=== PATIENT | female | born 1950 | race Caucasian/White ===

== ENCOUNTER → 2016-10-13 | Outpatient (CLI) | payer OTHER ==
[~2016-10-13] MED LIST: FSM70 PO; LEVO-217 PO
--- NOTE | 2016-10-13 14:52 | MAMMOGRAPHY REPORT ---
BILATERAL DIGITAL SCREENING MAMMOGRAM WITH CAD: 10/13/2016 CLINICAL HISTORY: Routine screening. Patient has no complaints. TECHNIQUE: Bilateral CC and MLO views were obtained. Current study was also evaluated with a Comput er Aided Detection (CAD) system. COMPARISON: Comparison is made to exams dated: 10/13/2015 mammogram, 10/09/2014 mammogram, 10/08/2013 mammogram, 10/02/2012 mammogram, 09/27/2011 mammogram, and 09/21/2010 mammogram - [facility]. BREAST COMPOSITION: The tissue of both breasts is almost entirely fatty. FINDINGS: There is evidence of prior bilateral breast surgery. Scattered benign-appearing calcifica tions. A stable oval 4.7 mm circumscribed mass in the lateral right breast. No new suspicious mass , architectural distortion or cluster of microcalcifications is seen. IMPRESSION: ACR BI-RADS CATEGORY 1: NEGATIVE There is no mammographic evidence of malignancy. A 1 year screening mammogram is recommended. The p atient will receive written notification of the results. Approximately 10% of breast cancers are not detected with mammography. A negative mammographic repor t should not delay biopsy if a clinically suggestive mass is present. Gia Da Silva M.D. ay/:10/13/2016 10:53:50 Support Services Coordinator: Manjula KRUSE(R)(M), [facility] letter sent: Normal 1/2 BI-RADS Code: ACR BI-RADS Category 1: Negative
== END | disposition home or self-care (01) ==
LOC: C.MAMM 10:14
PROVIDERS: ATTEND Internal Medicine
DX: Z12.31 Encounter for screening mammogram for malignant neoplasm of breast (principal)

== ENCOUNTER 2017-09-08 14:28 | Inpatient (IN) | payer OTHER ==
[~2017-09-08] VITALS: Ht 160 cm; Wt 67.8 kg
[2017-09-08] MEDS ORDERED: SODIUM CHLORIDE 0.9% 1000ML 1,000 ML IV STA (14:41)
[2017-09-08] MEDS ORDERED: KETOROLAC TROMETHAMINE 30 MG/ML VIAL IV STA (14:41)
--- NOTE | 2017-09-08 14:49 | EMERGENCY ROOM VISIT NOTE ---
History Report prepared by Chelo: Elo Valdes Under the Supervision of: Dr. Ghulam Childers M.D. First contact with patient: 14:30 Stated Complaint: NEAR SYNCOPE/ ARM AND SHOULDER PAIN History of Present Illness The patient is a 66 year old female who presents to the Emergency Room with complaints of persistent left shoulder pain due to a fall that occurred about an hour ago. The patient rates her pain a 9/10 in severity. The patient states she went [facility] to get her finger nail looked at. She notes when she got up from the table she lost her balance and landed on her left shoulder. She states she felt clammy after she got up. The patient notes she did not go unconscious when she fell. She notes [facility] administered 4 Aspirin. She reports she felt fine before and was not experiencing any lightheaded or dizziness. She was hypotensive at [facility]. She states she has pain in her left shoulder. The patient denies chest pain, shortness of breath, abdominal pain, or black or bloody stool. She denies any new medications or a history of heart problems. Source of History: patient Onset: about an hour ago Position: shoulder (left) Symptom Intensity: 9/10 Timing: other (persistent) Associated Symptoms: No chest pain, No SOB, No abdominal pain Note: Denies black or bloody stool, dizziness, or lightheaded. Review of Systems See HPI for pertinent positives & negatives. A total of 10 systems reviewed and were otherwise negative. Past Medical & Surgical Medical Problems: (1) Hypothyroidism (2) Osteoporosis Surgical Problems: (1) Eyelid surgery (2) History of cataract surgery (3) Hx of appendectomy (4) Status post breast reduction Appendectomy, breast reduction. Family History FHx: cancer Hypertension Social History Smoking Status: Former Smoker Occupation Status: employed Current/Historical Medications Scheduled Levothyroxine Sodium (Levothyroxine Sodium), 1 TAB PO DAILY Multivitamin (Multivitamin), 1 TAB PO DAILY Allergies Coded Allergies: No Known Allergies (Unverified , NONE, 09/08/17) Physical Exam Vital Signs Date Time Temp Pulse Resp B/P (MAP) Pulse Ox O2 Delivery O2 Flow Rate FiO2 09/08/17 19:03 37.3 63 18 124/73 (90) 100 Room Air 09/08/17 18:38 36.9 68 22 127/72 97 09/08/17 18:06 68 22 127/72 97 Room Air 09/08/17 18:06 97 Room Air 09/08/17 17:38 72 09/08/17 16:12 76 09/08/17 14:42 36.9 53 18 151/71 98 Room Air Physical Exam General: Non-ill appearing middle aged female in no acute distress. HEENT: Normal cephalic atraumatic. Pupils are equal round and reactive to light. Extraocular movements are intact. Oropharynx is pink with moist mucous membranes. No swelling of the mouth lips or tongue. Neck: Supple with a midline trachea. No meningeal signs or stiffness, no JVD or bruits. No Stridor. Chest: Clear to auscultation bilaterally. No wheezes or rhonchi. No increased work of breathing. Heart: regular rate and rhythm. Abdomen: Soft nontender, nondistended without rebound guarding or rigidity. Extremities: Holding left upper extremity flexed at elbow, close to chest, tender to palpation in mid to proximal humorous with no evidence of dislocation or obvious deformity, normal motor and sensation in left hand. Spine/Back. Non tender to palpation. No CVA tenderness Skin: Good turgor without rashes. Neurologic exam: Cranial nerves two through 12 are intact. Motor and sensation are intact and symmetrical throughout. Medical Decision & Procedures ER Provider Diagnostic Interpretation: Radiology results as stated below per my review and radiologist interpretation: L HUMERUS MIN 2 VIEWS ROUTINE CLINICAL HISTORY: Left arm pain. Evaluate for fracture. COMPARISON: None FINDINGS: Note is made of a lucency through the inferior aspect of the greater tuberosity of the left humeral head. This may reflect an acute nondisplaced fracture. No additional left humeral fractures are identified. IMPRESSION: Suspected acute nondisplaced left humeral head fracture involving the inferior aspect of the greater tuberosity. A vascular channel could appear similar although nondisplaced fracture is favored. Electronically signed by: Adrian Muir M.D. 09/08/2017 3:09 PM Dictated Date/Time: 09/08/2017 3:06 PM CHEST ONE VIEW PORTABLE CLINICAL HISTORY: CHEST PAIN COMPARISON STUDY: Chest radiograph July 06, 2008. FINDINGS: There is no pneumothorax or pleural effusion. Lungs are clear. Cardiomediastinal silhouette is unremarkable. Pulmonary vascularity is normal. There is a possible acute nondisplaced fracture of the lateral aspect of the left humeral head. IMPRESSION: 1. No acute cardiopulmonary findings. 2. Possible acute nondisplaced left humeral head fracture involving the inferior aspect of the greater tuberosity. Electronically signed by: Adrian Muir M.D. 09/08/2017 3:10 PM Dictated Date/Time: 09/08/2017 3:09 PM Laboratory Results 09/08/17 15:16 Red Blood Count 4.21, Mean Corpuscular Volume 85.5, Mean Corpuscular Hemoglobin 29.2, Mean Corpuscular Hemoglobin Concent 34.2, Mean Platelet Volume 10.3, Neutrophils (%) (Auto) 76.7, Lymphocytes (%) (Auto) 17.5, Monocytes (%) (Auto) 5.0, Eosinophils (%) (Auto) 0.6, Basophils (%) (Auto) 0.1, Neutrophils # (Auto) 5.51, Lymphocytes # (Auto) 1.26, Monocytes # (Auto) 0.36, Eosinophils # (Auto) 0.04, Basophils # (Auto) 0.01 09/08/17 15:16 Test 09/08/17 15:16 09/08/17 16:06 White Blood Count 7.19 K/uL (4.8-10.8) Red Blood Count 4.21 M/uL (4.2-5.4) Hemoglobin 12.3 g/dL (12.0-16.0) Hematocrit 36.0 % (37-47) Mean Corpuscular Volume 85.5 fL (80-100) Mean Corpuscular Hemoglobin 29.2 pg (25-34) Mean Corpuscular Hemoglobin Concent 34.2 g/dl (32-36) Platelet Count 244 K/uL (130-400) Mean Platelet Volume 10.3 fL (7.4-10.4) Neutrophils (%) (Auto) 76.7 % Lymphocytes (%) (Auto) 17.5 % Monocytes (%) (Auto) 5.0 % Eosinophils (%) (Auto) 0.6 % Basophils (%) (Auto) 0.1 % Neutrophils # (Auto) 5.51 K/uL (1.4-6.5) Lymphocytes # (Auto) 1.26 K/uL (1.2-3.4) Monocytes # (Auto) 0.36 K/uL (0.11-0.59) Eosinophils # (Auto) 0.04 K/uL (0-0.5) Basophils # (Auto) 0.01 K/uL (0-0.2) RDW Standard Deviation 40.1 fL (36.4-46.3) RDW Coefficient of Variation 12.9 % (11.5-14.5) Immature Granulocyte % (Auto) 0.1 % Immature Granulocyte # (Auto) 0.01 K/uL (0.00-0.02) Anion Gap 6.0 mmol/L (3-11) Est Creatinine Clear Calc Drug Dose 49.8 ml/min Estimated GFR () 67.9 Estimated GFR (Non- 58.6 BUN/Creatinine Ratio 26.2 (10-20) Calcium Level 8.7 mg/dl (8.5-10.1) Total Bilirubin 0.4 mg/dl (0.2-1) Direct Bilirubin < 0.1 mg/dl (0-0.2) Aspartate Amino Transf (AST/SGOT) 24 U/L (15-37) Alanine Aminotransferase (ALT/SGPT) 28 U/L (12-78) Alkaline Phosphatase 50 U/L (45-117) Total Creatine Kinase 153 U/L (26-192) Creatine Kinase MB 2.3 ng/ml (0.5-3.6) Creatine Kinase MB Ratio 1.5 (0-3.0) Total Protein 7.2 gm/dl (6.4-8.2) Albumin 3.9 gm/dl (3.4-5.0) Lipase 165 U/L (73-393) Thyroid Stimulating Hormone (TSH) 2.340 uIu/ml (0.300-4.500) Prothrombin Time 10.5 SECONDS (9.0-12.0) Prothromb Time International Ratio 1.0 (0.9-1.1) Activated Partial Thromboplast Time 21.7 SECONDS (21.0-31.0) Partial Thromboplastin Ratio 0.8 Laboratory studies as stated above per my review. Medications Administered Medications (Trade) Dose Ordered Sig/Luis Route Start Time Stop Time Status Last Admin Dose Admin Sodium Chloride 1,000 ml @ 999 mls/hr Q1H1M STAT IV 09/08/17 14:41 09/08/17 15:41 DC 09/08/17 15:46 999 MLS/HR Ketorolac Tromethamine (Toradol Inj) 30 mg NOW STAT IV 09/08/17 14:41 09/08/17 14:45 DC 09/08/17 15:47 30 MG Acetaminophen/ Hydrocodone Bitart ([place] 7.5/325 Tab) 1 tab Q6H PRN PO 09/08/17 17:45 09/22/17 17:44 09/08/17 18:04 1 TAB ECG Per My Interpretation Indication: syncope (near syncope) Rate (beats per minute): 60 Rhythm: normal sinus Findings: no acute ischemic change, other (non specific T wave abnormality) Comparison ECG Date: compared to EKG at [facility] earlier today Change: Non specific T wave replaces T wave inversion anteriorly. ED Course 1430: Past medical records reviewed. The patient was evaluated in room C8, and a complete history and physical examination were performed. 1441: Toradol Inj 30 mg IV, Sodium Chloride 1000 ml @ 999 mls/hr IV. 1455: Patient appears comfortable, she is getting X-rays now. 1530: Patient is resting comfortably, ordered a sling. The patient has a humorous fracture. 1648: I reevaluated the patient and she is resting comfortably. 1700: I spoke with Angi Paredes and she is agreeable to the treatment plan. She will evaluate the patient for further treatment. Medical Decision Differentials include, but are not limited to; syncope, arrhythmia, acute coronary syndrome, dehydration, orthopedic injury, electrolyte or metabolic abnormalities. This patient comes in as described above. She was placed in room C8. She had a near syncopal episode where she fell and hit her left shoulder at her doctor' s office. She denies any chest pain but there was concern as she has T-wave inversions mostly anteriorly which are new. She has had no chest pain or shortness breath. she has pain from her shoulder. I have asked established blood work was obtained. She was given Toradol IV for pain and seems more comfortable with this. Her x-ray does reveal a nondisplaced humerus fracture. A sling was placed. EKG here shows nonspecific T-wave abnormalities. She has no acute electrolyte or metabolic abnormality. She has nothing to suggest acute thyroid disease. There is no pneumothorax. I do think she should be observed given her T-wave inversions in her near syncopal episode. I have consulted the [facility] hospitalist to see her in the ER for these measures. Medication Reconcilliation Current Medication List: was personally reviewed by me Blood Pressure Screening Patient's blood pressure: Elevated blood pressure Blood pressure disposition: Elevated BP felt to be situational Consults Time Called: 1644 Consulting Physician: Angi Paredes Returned Call: 1700 I spoke with Angi Paredes and she is agreeable to the treatment plan. She will evaluate the patient for further treatment. Impression Primary Impression: Syncope Additional Impression: Shoulder fracture Scribe Attestation The scribe's documentation has been prepared under my direction and personally reviewed by me in its entirety. I confirm that the note above accurately reflects all work, treatment, procedures, and medical decision making performed by me. Departure Information Dispostion Being Evaluated By Hospitalist Referrals Michael Mason D.O. (PCP) Problem Qualifiers
--- NOTE | 2017-09-08 15:10 | DIAGNOSTIC IMAGING REPORT ---
L HUMERUS MIN 2 VIEWS ROUTINE CLINICAL HISTORY: Left arm pain. Evaluate for fracture. COMPARISON: None FINDINGS: Note is made of a lucency through the inferior aspect of the greater tuberosity of the left humeral head. This may reflect an acute nondisplaced fracture. No additional left humeral fractures are identified. IMPRESSION: Suspected acute nondisplaced left humeral head fracture involving the inferior aspect of the greater tuberosity. A vascular channel could appear similar although nondisplaced fracture is favored. Electronically signed by: Adrian Muir M.D. 09/08/2017 3:09 PM Dictated Date/Time: 09/08/2017 3:06 PM
--- NOTE | 2017-09-08 15:12 | DIAGNOSTIC IMAGING REPORT ---
CHEST ONE VIEW PORTABLE CLINICAL HISTORY: CHEST PAIN COMPARISON STUDY: Chest radiograph July 06, 2008. FINDINGS: There is no pneumothorax or pleural effusion. Lungs are clear. Cardiomediastinal silhouette is unremarkable. Pulmonary vascularity is normal. There is a possible acute nondisplaced fracture of the lateral aspect of the left humeral head. IMPRESSION: 1. No acute cardiopulmonary findings. 2. Possible acute nondisplaced left humeral head fracture involving the inferior aspect of the greater tuberosity. Electronically signed by: Adrian Muir M.D. 09/08/2017 3:10 PM Dictated Date/Time: 09/08/2017 3:09 PM
[2017-09-08 15:34] LABS: BASO % 0.1 %; BASO ABS # 0.01 K/uL (0-0.2); EOS % 0.6 %; EOS ABS # 0.04 K/uL (0-0.5); HEMOGLOBIN 12.3 g/dL (12.0-16.0); IG# 0.01 K/uL (0.00-0.02); LYMPH % 17.5 %; LYMPH ABS # 1.26 K/uL (1.2-3.4); MEAN CELL VOLUME 85.5 fL (80-100); MEAN CORPUSCULAR HEMOGLOBIN 29.2 pg (25-34); MEAN CORPUSCULAR HGB CONC 34.2 g/dl (32-36); MEAN PLATELET VOLUME 10.3 fL (7.4-10.4); MONO ABS # 0.36 K/uL (0.11-0.59); NEUT % 76.7 %; NEUT ABS # 5.51 K/uL (1.4-6.5); PLATELET COUNT 244 K/uL (130-400); RED CELL DISTRIBUTION WIDTH CV 12.9 % (11.5-14.5); RED CELL DISTRIBUTION WIDTH SD 40.1 fL (36.4-46.3); WHITE BLOOD COUNT 7.19 K/uL (4.8-10.8)
[2017-09-08 16:00] LABS: ALBUMIN 3.9 gm/dl (3.4-5.0); ALT/SGPT 28 U/L (12-78); BLOOD UREA NITROGEN 26 mg/dl (7-18); CALCIUM 8.7 mg/dl (8.5-10.1); CARBON DIOXIDE 27 mmol/L (21-32); CREATININE 0.99 mg/dl (0.60-1.20); GLUCOSE 112 mg/dl (70-99); LIPASE 165 U/L (73-393); POTASSIUM 3.5 mmol/L (3.5-5.1); SODIUM 138 mmol/L (136-145)
[2017-09-08 16:11] LABS: ALKALINE PHOSPHATASE 50 U/L (45-117); AST/SGOT 24 U/L (15-37); CKMB 2.3 ng/ml (0.5-3.6); TOTAL PROTEIN 7.2 gm/dl (6.4-8.2)
[2017-09-08 16:32] LABS: PTT PATIENT 21.7 SECONDS (21.0-31.0)
[2017-09-08] MEDS ORDERED: MULT-506 PO (17:03)
[2017-09-08] MEDS ORDERED: LEVO50TA6 PO (17:03)
[2017-09-08] MEDS ORDERED: ONDANSETRON INJ 2 MG/ML 2 ML VIAL IV PRN (17:45)
[2017-09-08] MEDS: HYDROCODONE/ACETAMINOPHEN 7.5/325MG TAB PO PRN ×2 (18:04→23:42)
[2017-09-08 18:06] VITALS: O2SAT 97; Ht 160 cm; Wt 67.8 kg
--- NOTE | 2017-09-08 18:15 | History and Physical ---
History & Physical Date & Time of Service: Sep 08, 2017 ~ 17:15 Chief Complaint: Fall, left shoulder pain Primary Care Physician: Michael Mason D.O. History of Present Illness 58-year-old female who presents to the ER after a fall and left shoulder pain. Patient was at the outpatient dermatology office when she reports she went to adjust her chair and subsequently fell to the left and onto the ground. She reports immediate left shoulder pain. She reports pain was severe. She reports she was unable to get off the floor from the pain. Patient was found to be diaphoretic. She was transferred to the internal medicine office where she was found to be bradycardic and hypotensive. Patient denies any feelings of lightheadedness or dizziness. She denies loss of consciousness. No chest pain, palpitations, shortness of breath. Patient reports she otherwise has been feeling well recently. She walks up to 2 miles per day. No recent illnesses, fevers, or chills. She denies abdominal pain, nausea, vomiting, or diarrhea. No urinary symptoms. In the ED, patient was found to have a nondisplaced left humerus fracture. Labs are unremarkable. Blood pressure is stable. EKG shows sinus arrhythmia with mildly worsened T-wave flattening/inversions in leads aVF , V2, V3, V4, and V5. During my exam, patient was noted to have heart rates in the 90s with sinus arrhythmia. Past Medical/Surgical History Medical Problems: (1) Hypothyroidism Status: Chronic (2) Osteoporosis Status: Chronic Surgical Problems: (1) Eyelid surgery Status: Chronic (2) History of cataract surgery Status: Chronic (3) Hx of appendectomy Status: Chronic (4) Status post breast reduction Status: Chronic Family History FH: breast cancer MOTHER FH: liver cancer FATHER Social History Smoking Status: Former Smoker Alcohol Use: 1 glass of red wine/night Immunizations History of Influenza Vaccine: Yes Influenza Vaccine Date: Feb 16, 2017 History of Tetanus Vaccine?: Yes Tetanus Immunization Date: Feb 16, 1970 History of Pneumococcal: Yes Pneumococcal Date: Jul 17, 2010 Allergies Coded Allergies: No Known Allergies (Unverified , NONE, 09/08/17) Home Medications Scheduled Levothyroxine Sodium (Levothyroxine Sodium), 1 TAB PO DAILY Multivitamin (Multivitamin), 1 TAB PO DAILY Review of Systems ROS per HPI, all other systems reviewed and negative Physical Exam Vital Signs Date Time Temp Pulse Resp B/P (MAP) Pulse Ox O2 Delivery O2 Flow Rate FiO2 09/08/17 17:38 72 09/08/17 16:12 76 09/08/17 14:42 36.9 53 18 151/71 98 Room Air General Appearance: WD/WN, no apparent distress Head: normocephalic, atraumatic Eyes: normal inspection, EOMI, sclerae normal ENT: hearing grossly normal, + pertinent finding (Mucous membranes moist) Neck: supple, no JVD, trachea midline Respiratory/Chest: lungs clear, normal breath sounds, no respiratory distress Cardiovascular: no edema, no murmur, normal peripheral pulses, + irregularly irregular (Heart rate controlled) Abdomen/GI: normal bowel sounds, non tender, soft, no organomegaly Extremities/Musculoskelatal: + pertinent finding (Left upper extremity in sling , CSM checks intact) Neurologic/Psych: no motor/sensory deficits, alert, normal mood/affect, oriented x 3 Skin: normal color, warm/dry Diagnostics Laboratory Results Results Past 24 Hours Test 09/08/17 15:16 09/08/17 16:06 Range/Units White Blood Count 7.19 4.8-10.8 K/uL Red Blood Count 4.21 4.2-5.4 M/uL Hemoglobin 12.3 12.0-16.0 g/dL Hematocrit 36.0 37-47 % Mean Corpuscular Volume 85.5 80-100 fL Mean Corpuscular Hemoglobin 29.2 25-34 pg Mean Corpuscular Hemoglobin Concent 34.2 32-36 g/dl Platelet Count 244 130-400 K/uL Mean Platelet Volume 10.3 7.4-10.4 fL Neutrophils (%) (Auto) 76.7 % Lymphocytes (%) (Auto) 17.5 % Monocytes (%) (Auto) 5.0 % Eosinophils (%) (Auto) 0.6 % Basophils (%) (Auto) 0.1 % Neutrophils # (Auto) 5.51 1.4-6.5 K/uL Lymphocytes # (Auto) 1.26 1.2-3.4 K/uL Monocytes # (Auto) 0.36 0.11-0.59 K/uL Eosinophils # (Auto) 0.04 0-0.5 K/uL Basophils # (Auto) 0.01 0-0.2 K/uL RDW Standard Deviation 40.1 36.4-46.3 fL RDW Coefficient of Variation 12.9 11.5-14.5 % Immature Granulocyte % (Auto) 0.1 % Immature Granulocyte # (Auto) 0.01 0.00-0.02 K/uL Sodium Level 138 136-145 mmol/L Potassium Level 3.5 3.5-5.1 mmol/L Chloride Level 105 98-107 mmol/L Carbon Dioxide Level 27 21-32 mmol/L Anion Gap 6.0 3-11 mmol/L Blood Urea Nitrogen 26 7-18 mg/dl Creatinine 0.99 0.60-1.20 mg/dl Est Creatinine Clear Calc Drug Dose 49.8 ml/min Estimated GFR () 67.9 Estimated GFR (Non- 58.6 BUN/Creatinine Ratio 26.2 10-20 Random Glucose 112 70-99 mg/dl Calcium Level 8.7 8.5-10.1 mg/dl Total Bilirubin 0.4 0.2-1 mg/dl Direct Bilirubin < 0.1 0-0.2 mg/dl Aspartate Amino Transf (AST/SGOT) 24 15-37 U/L Alanine Aminotransferase (ALT/SGPT) 28 12-78 U/L Alkaline Phosphatase 50 45-117 U/L Total Creatine Kinase 153 26-192 U/L Creatine Kinase MB 2.3 0.5-3.6 ng/ml Creatine Kinase MB Ratio 1.5 0-3.0 Total Protein 7.2 6.4-8.2 gm/dl Albumin 3.9 3.4-5.0 gm/dl Lipase 165 73-393 U/L Thyroid Stimulating Hormone (TSH) 2.340 0.300-4.500 uIu/ml Prothrombin Time 10.5 9.0-12.0 SECONDS Prothromb Time International Ratio 1.0 0.9-1.1 Activated Partial Thromboplast Time 21.7 21.0-31.0 SECONDS Partial Thromboplastin Ratio 0.8 Diagnostic Radiology LEFT HUMERUS X-RAY IMPRESSION: Suspected acute nondisplaced left humeral head fracture involving the inferior aspect of the greater tuberosity. A vascular channel could appear similar although nondisplaced fracture is favored. CXR IMPRESSION: 1. No acute cardiopulmonary findings. 2. Possible acute nondisplaced left humeral head fracture involving the inferior aspect of the greater tuberosity. Impression Assessment and Plan FALL, BRADYCARDIA -Admit to telemetry -Patient presenting from outpatient office where she suffered from what sounds like a mechanical fall however upon evaluation was found to be bradycardic and hypotensive -No associated cardiac or presyncopal symptoms reported -EKG in the ED shows minimal T-wave changes as described in HPI -On telemetry patient appears to be in sinus arrhythmia with heart rates ranging from the 50s-90s -Question possible tachybradycardia syndrome -continue to cycle cardiac enzymes, check resting echocardiogram -Orthostatic blood pressures -Continue to monitor in telemetry, may need cardiology consult LEFT HUMERUS FRACTURE -Nondisplaced, likely nonsurgical -Consult orthopedics HYPOTHYROIDISM -TSH 2.34 -Continue levothyroxine DVT PROPHYLAXIS -SQ Lovenox DISPOSITION -The patient will be placed as observation status for now until further work up is complete. Attending addendum: The patient was seen in the ER in presence of the daughter Admitted with mechanical fall and left shoulder fracture Was noted to have bradycardia with heart rate of lower 40s and blood pressure of 80s in the clinic Denies any symptoms in the emergency room Noted to have very insignificant EKG changes. On examination No apparent distress Hemodynamically stable with heart rate around 60s Chest-clear Heart S1-S2 regular Abdomen-benign Extremities-no edema The left upper extremity is in sling [employer]-alert awake, and oriented No focal neuro deficit Admission labs and imaging studies and EKG reviewed Doubt any ACS,May have Bradyarrhythmia Agree with assessment and plan as mentioned above. Dr. Nan Gray Resuscitation Status VTE Prophylaxis Will order VTE Prophylaxis: Yes
[2017-09-08] MEDS ORDERED: IV FLUIDS COMPLETED PRN (19:00)
[2017-09-08 19:03] VITALS: BP 124/73; PULSE 63; TEMP 37.3; O2SAT 100
[2017-09-08] MEDS: ACETAMINOPHEN 325 MG TAB PO PRN (19:37)
[2017-09-08 19:42] VITALS: BP_SYST 134; BP_SYST 140; BP_DIAS 75; BP_DIAS 77; BP_DIAS 78; PULSE 63; PULSE 75; PULSE 82
[2017-09-08] MEDS: ENOXAPARIN 40 MG/0.4 ML SYR SC SCH (20:00)
[2017-09-08] MEDS ORDERED: MoRPHine SULFATE 2 MG/ML CARP IV ONE (21:45)
[2017-09-08] MEDS ORDERED: NURSING VERBAL MED ORDER ONE (21:45)
[2017-09-09] VITALS (7 sets, daily range): BP systolic 111–165; BP diastolic 55–90; PULSE 56–91; TEMP 36.6–37.2; O2SAT 95–100
[2017-09-09 03:28] LABS: HEMATOCRIT 32.3 % (37-47); HEMOGLOBIN 11.2 g/dL (12.0-16.0); MEAN CELL VOLUME 84.6 fL (80-100); MEAN CORPUSCULAR HEMOGLOBIN 29.3 pg (25-34); MEAN CORPUSCULAR HGB CONC 34.7 g/dl (32-36); MEAN PLATELET VOLUME 9.7 fL (7.4-10.4); PLATELET COUNT 213 K/uL (130-400); RED CELL DISTRIBUTION WIDTH CV 13.1 % (11.5-14.5); WHITE BLOOD COUNT 7.62 K/uL (4.8-10.8)
[2017-09-09] MEDS ORDERED: KETOROLAC TROMETHAMINE 15 MG/ML VIAL IV ONE (03:45)
[2017-09-09 03:50] LABS: BLOOD UREA NITROGEN 23 mg/dl (7-18); CALCIUM 8.3 mg/dl (8.5-10.1); CARBON DIOXIDE 26 mmol/L (21-32); CREATININE 0.74 mg/dl (0.60-1.20); GLUCOSE 125 mg/dl (70-99); POTASSIUM 3.6 mmol/L (3.5-5.1); SODIUM 134 mmol/L (136-145)
[2017-09-09] MEDS: LEVOTHYROXINE 50 MCG TAB PO SCH (05:55)
[2017-09-09] MEDS: HYDROCODONE/ACETAMINOPHEN 7.5/325MG TAB PO PRN (05:55)
[2017-09-09] MEDS ORDERED: PERFLUTREN LIPID MICROSPHERE (DEFINITY) IV ONE (07:03)
[2017-09-09] MEDS: MULTIVITAMIN TAB PO SCH (08:06)
[2017-09-09] MEDS: ACETAMINOPHEN 325 MG TAB PO PRN (08:09)
--- NOTE | 2017-09-09 10:46 | ECHOCARDIOGRAM REPORT ---
*NOTICE TO RECEIVING [employer] [employer] This information is strictly Confidential and protected under [place] law. [place] law prohibits you from making any further disclosure of this information unless further disclosure is expressly permitted by the written consent of the person to whom it pertains or is authorized by law. A general authorization for the release of medical or other information is not sufficient for this purpose. Hospital accepts no responsibility if the information is made available to any other person, INCLUDING THE PATIENT. Interpretation Summary * Name: HUMBERTO MESSINA Study Date: 09/09/2017 06:30 AM BP: 155/79 mmHg * Patient Location: C.2T\S\S244\S\1 HR: 53 * : 1950 (M/d/yyyy) Gender: Female Height: 63 in * Age: 66 yrs Ethnicity: CA Weight: 146 lb * Ordering Physician: Sepideh Willard * Referring Physician: Lidia Steele * Performed By: Zoila Vásquez RDCS * * Reason For Study: BRADYCARDIA * BSA: 1.7 m2 * Left Shoulder/Arm in Sling... Patient flat on back * -- Conclusions -- * Left ventricular systolic function is normal. * Ejection Fraction = 60-65%. * The right ventricular systolic function is normal. * The left atrial size is normal. * Right atrial size is normal. * The aortic valve is trileaflet. * Moderate aortic regurgitation. * There is mild to moderate mitral regurgitation. Procedure Details * A contrast injection of Definity was performed to improve assessment of LV function. * Contrast was injected into an intravenous site in the right arm. * One vial of Definity ultrasound contrast was diluted in normal saline to a total volume of 10 ml. A total of '1' ml of solution was administered during imaging. * Lot # [id number] of Definity utilized for procedure. * Expiration date SEP 15. * The attending nurse who injected the contrast agent was SHAYNA BARNETT. Left Ventricle * The left ventricle is normal in size. * There is normal left ventricular wall thickness. * Ejection Fraction = 60-65%. * Left ventricular systolic function is normal. Right Ventricle * The right ventricle is normal size. * The right ventricular systolic function is normal. Atria * The left atrial size is normal. * Right atrial size is normal. * No ASD detected; PFO is not assessed. Mitral Valve * The mitral valve anatomy is normal. * There is mild to moderate mitral regurgitation. Tricuspid Valve * The tricuspid valve is not well visualized, but is grossly normal. * Significant tricuspid regurgitation is absent. Aortic Valve * The aortic valve opens well. * The aortic valve is trileaflet. * Moderate aortic regurgitation. Pulmonic Valve * The pulmonic valve is not well visualized. Great Vessels * The aortic root and proximal ascending aorta are normal sized. Pericardium/Pleural * There is no pericardial effusion. MMode 2D Measurements and Calculations IVSd 0.96 cm IVSs 1.3 cm LVIDd 4.7 cm LVIDs 3.1 cm LVPWd 1.1 cm LVPWs 1.5 cm IVS/LVPW 0.88 FS 34.0 % EDV(Teich) 103.7 ml ESV(Teich) 38.5 ml EF(Teich) 62.9 % EDV(cubed) 105.6 ml ESV(cubed) 30.3 ml EF(cubed) 71.3 % % IVS thick 34.7 % % LVPW thick 36.2 % LV mass(C)d 171.8 grams LV mass(C)dI 101.6 grams/m\S\2 LV mass(C)s 146.1 grams LV mass(C)sI 86.3 grams/m\S\2 SV(Teich) 65.2 ml SI(Teich) 38.6 ml/m\S\2 SV(cubed) 75.3 ml SI(cubed) 44.5 ml/m\S\2 Ao root diam 3.2 cm Ao root area 7.8 cm\S\2 LA dimension 3.3 cm LA/Ao 1.1 LVAd ap4 29.7 cm\S\2 LVLd ap4 8.0 cm EDV(MOD-sp4) 88.9 ml EDV(sp4-el) 93.4 ml LVAs ap4 15.8 cm\S\2 LVLs ap4 6.0 cm ESV(MOD-sp4) 35.4 ml ESV(sp4-el) 35.8 ml EF(MOD-sp4) 60.1 % EF(sp4-el) 61.7 % LVAd ap2 27.4 cm\S\2 LVLd ap2 7.6 cm EDV(MOD-sp2) 76.5 ml EDV(sp2-el) 83.7 ml LVAs ap2 14.2 cm\S\2 LVLs ap2 5.4 cm ESV(MOD-sp2) 31.2 ml ESV(sp2-el) 31.8 ml EF(MOD-sp2) 59.2 % EF(sp2-el) 62.0 % LVLd %diff -5.43 % EDV(MOD-bp) 82.8 ml LVLs %diff -9.83 % ESV(MOD-bp) 34.1 ml EF(MOD-bp) 58.8 % SV(MOD-sp4) 53.5 ml SI(MOD-sp4) 31.6 ml/m\S\2 SV(MOD-sp2) 45.3 ml SI(MOD-sp2) 26.7 ml/m\S\2 SV(MOD-bp) 48.7 ml SI(MOD-bp) 28.8 ml/m\S\2 SV(sp4-el) 57.6 ml SI(sp4-el) 34.1 ml/m\S\2 SV(sp2-el) 51.9 ml SI(sp2-el) 30.7 ml/m\S\2 Doppler Measurements and Calculations MV E max amena 69.6 cm/sec MV A max amena 44.3 cm/sec MV E/A 1.6 MV dec time 0.28 sec Ao V2 max 115.8 cm/sec Ao max PG 5.4 mmHg Ao max PG (full) 2.5 mmHg AI max amena 253.9 cm/sec AI max PG 25.8 mmHg AI dec slope 156.2 cm/sec\S\2 AI P1/2t 476.1 msec LV V1 max PG 2.9 mmHg LV V1 max 84.9 cm/sec TR max amena 213.4 cm/sec
[2017-09-09] MEDS ORDERED: TRAMADOL HCL 50 MG TAB PO ONE (10:50)
[2017-09-09] MEDS ORDERED: OXYCODONE HCL IR 5 MG TAB (IMMEDIATE RELEASE) PO PRN (11:00)
[2017-09-09] MEDS ORDERED: TRAMADOL HCL 50 MG TAB PO PRN (11:00)
--- NOTE | 2017-09-09 12:34 | DIAGNOSTIC IMAGING REPORT ---
SCAPULAR Y VIEW OF THE LEFT SHOULDER CLINICAL HISTORY: Left shoulder pain. Possible posterior dislocation. COMPARISON: Left humerus radiographs performed September 08, 2017. FINDINGS: A lucency projecting over the left humeral neck could reflect a nondisplaced fracture. The humeral head is posteriorly located with respect to the glenoid. IMPRESSION: 1. Posterior positioning of the left humeral head with respect to the glenoid which could reflect a posterior left shoulder dislocation or subluxation. 2. Lucency projecting over the left humeral neck suggestive of an acute nondisplaced fracture. Electronically signed by: Adrian Muir M.D. 09/09/2017 12:33 PM Dictated Date/Time: 09/09/2017 12:28 PM
[2017-09-09] MEDS: ACETAMINOPHEN 500 MG TAB PO SCH ×2 (14:12→22:00)
--- NOTE | 2017-09-09 15:50 | Medical Consult ---
Consultation Date of Consultation: Sep 09, 2017. Attending Physician: Xavier Sharp M.D. Reason for Consultation: Left shoulder pain History of Present Illness Patient is a 66 year old female that presented yesterday to the ER. She fell while at an office visit onto her left shoulder. She had immediate pain. She was also having some hypotension and bradycardia at the time. She denied nausea , vomiting, chest pain, or shortness of breath. Past Medical/Surgical History Medical Problems: (1) Shoulder fracture Status: Acute (2) Syncope Status: Acute Family History FH: breast cancer MOTHER FH: liver cancer FATHER Social History Smoking Status: Former Smoker Alcohol Use: 1 glass of red wine/night Allergies Coded Allergies: No Known Allergies (Unverified , NONE, 09/08/17) Current Inpatient Medications Current Inpatient Medications Medications (Trade) Dose Ordered Sig/Ulis Route Start Time Stop Time Status Last Admin Dose Admin Enoxaparin Sodium (Lovenox Inj) 40 mg Q24H SC 09/08/17 20:00 10/08/17 19:59 Acetaminophen (Tylenol Tab) 650 mg Q4H PRN PO 09/08/17 17:45 10/08/17 17:44 Future Hold 09/09/17 08:09 650 MG Ondansetron HCl (Zofran Inj) 4 mg Q6H PRN IV 09/08/17 17:45 10/08/17 17:44 Levothyroxine Sodium (Synthroid Tab) 50 mcg DAILYBB PO 09/09/17 06:00 10/09/17 06:59 09/09/17 05:55 50 MCG Multivitamins (Multivitamin Tab) 1 tab DAILY PO 09/09/17 09:00 10/09/17 08:59 09/09/17 08:06 1 TAB Miscellaneous (Iv Fluids Completed) 1 ea PRN PRN N/A 09/08/17 19:00 09/08/18 18:59 Acetaminophen (Tylenol Tab) 1,000 mg Q8 PO 09/09/17 14:00 10/09/17 13:59 09/09/17 14:12 1,000 MG Tramadol HCl (Ultram Tab) 50 mg Q6H PRN PO 09/09/17 11:00 10/09/17 10:59 Oxycodone HCl (Roxicodone Immediate Rel Tab) 5 mg Q6H PRN PO 09/09/17 11:00 09/23/17 10:59 09/09/17 13:19 5 MG Review of Systems Constitutional: No fever, No chills, No sweats, No weight loss, No weakness, No fatigue Eyes: No worsening of vision, No redness ENT: No hearing loss, No tinnitus Respiratory: No cough, No wheezing, No shortness of breath Cardiovascular: No chest pain, No edema Abdomen: No pain, No nausea, No vomiting, No diarrhea, No constipation Musculoskeletal: + joint pain (left shoulder - unable to move the shoulder without pain), + swelling (left shoulder) Neurologic: No memory loss, No numbness/tingling, No vertigo Psychiatric: No depression symptoms, No anxiety Integumentary: No rash, No itch Physical Exam Date Time Temp Pulse Resp B/P (MAP) Pulse Ox O2 Delivery O2 Flow Rate FiO2 09/09/17 12:00 Room Air 09/09/17 11:21 37.1 57 18 138/55 (82) 100 09/09/17 08:00 Room Air 09/09/17 07:28 37.1 56 18 156/81 (106) 95 Room Air 148/79 (102) 155/79 (104) 09/09/17 04:00 Room Air 09/09/17 03:12 37.2 58 20 111/69 (83) 96 Room Air 09/09/17 00:12 37.0 65 18 133/74 (93) 95 Room Air 09/08/17 23:59 Room Air 09/08/17 20:00 Room Air 09/08/17 19:42 75 140/78 (98) 63 134/75 (94) 82 134/77 (96) 09/08/17 19:03 37.3 63 18 124/73 (90) 100 Room Air 09/08/17 18:38 36.9 68 22 127/72 97 09/08/17 18:06 68 22 127/72 97 Room Air 09/08/17 18:06 97 Room Air 09/08/17 17:38 72 09/08/17 16:12 76 General Appearance: WD/WN, no apparent distress Head: normocephalic, atraumatic Eyes: normal inspection, PERRL, EOMI, sclerae normal ENT: hearing grossly normal, pharynx normal Neck: supple, no adenopathy, no JVD, trachea midline Respiratory/Chest: lungs clear, normal breath sounds Cardiovascular: regular rate, rhythm, no murmur Abdomen/GI: normal bowel sounds, non tender, soft Extremities/Musculoskelatal: no calf tenderness, normal capillary refill, + pertinent finding (decreased ROM and tenderness over the lateral acromion. Patient was in a sling and unable to move her arm due to pain. capillary refill was normal. Neurovascularly intact distally. ) Neurologic/Psych: no motor/sensory deficits, alert, normal reflexes, oriented x 3 Skin: normal color, warm/dry, no rash Laboratory Results Last 24 Hours Test 09/08/17 16:06 09/08/17 20:51 09/09/17 03:20 Prothrombin Time 10.5 SECONDS Prothromb Time International Ratio 1.0 Activated Partial Thromboplast Time 21.7 SECONDS Partial Thromboplastin Ratio 0.8 Troponin I < 0.015 ng/ml < 0.015 ng/ml White Blood Count 7.62 K/uL Red Blood Count 3.82 M/uL Hemoglobin 11.2 g/dL Hematocrit 32.3 % Mean Corpuscular Volume 84.6 fL Mean Corpuscular Hemoglobin 29.3 pg Mean Corpuscular Hemoglobin Concent 34.7 g/dl RDW Standard Deviation 40.0 fL RDW Coefficient of Variation 13.1 % Platelet Count 213 K/uL Mean Platelet Volume 9.7 fL Sodium Level 134 mmol/L Potassium Level 3.6 mmol/L Chloride Level 105 mmol/L Carbon Dioxide Level 26 mmol/L Anion Gap 3.0 mmol/L Blood Urea Nitrogen 23 mg/dl Creatinine 0.74 mg/dl Est Creatinine Clear Calc Drug Dose 66.6 ml/min Estimated GFR () 96.5 Estimated GFR (Non- 83.2 BUN/Creatinine Ratio 31.4 Random Glucose 125 mg/dl Calcium Level 8.3 mg/dl SCAPULAR Y VIEW OF THE LEFT SHOULDER CLINICAL HISTORY: Left shoulder pain. Possible posterior dislocation. COMPARISON: Left humerus radiographs performed September 08, 2017. FINDINGS: A lucency projecting over the left humeral neck could reflect a nondisplaced fracture. The humeral head is posteriorly located with respect to the glenoid. IMPRESSION: 1. Posterior positioning of the left humeral head with respect to the glenoid which could reflect a posterior left shoulder dislocation or subluxation. 2. Lucency projecting over the left humeral neck suggestive of an acute nondisplaced fracture. Assessment & Plan Patient is a 66y/o female with mechanical fall that presented to the ER. X-rays of her shoulder demonstrated a greater tuberosity fracture in the ED. She was admitted to the hospital as she was also having bradycardia and hypotension. New x-rays demonstrated a posterior dislocated shoulder with a nondisplaced fracture through the humeral neck. This case was discussed with Dr. Ragsdale. She recently ate lunch. She was instructed to not eat or drink anything as anesthesia will be needed to help reduce the shoulder. She is going to be scheduled for a closed reduction of the left shoulder. Risks and benefits were discussed that included but not limited to increased pain, swelling, risk for PE and blood clots, damage to blood vessels and nerves, anesthesia risk and fracture movement. She understands these risks and would like to proceed.
--- NOTE | 2017-09-09 20:53 | Progress Note ---
Medicine Progress Note Date & Time of Visit: Sep 09, 2017 at 10:20 . Subjective CC: Follow-up visit for fall, left humerus fracture. HPI: Admitted after apparent mechanical fall in clinic with injury to left arm. Found to be bradycardic and hypotensive after the fall; experiencing severe pain at the time. Experiencing pain of her left arm with movement. No chest pain or dyspnea. Review of cardiac monitoring reports sinus bradycardia/sinus rhythm. ROS: General- no fever, no chills Resp- no cough; no shortness of breath Cardiac- as noted above in HPI GI- no nausea, no vomiting, no diarrhea, no constipation - no dysuria, no difficulty voiding . Objective Last 8 Hrs Date Time Temp Pulse Resp B/P (MAP) Pulse Ox O2 Delivery O2 Flow Rate FiO2 09/09/17 19:34 37.0 69 16 154/75 (101) 100 Room Air 09/09/17 16:00 Room Air 09/09/17 15:40 37.1 64 18 165/67 (99) 96 Room Air 80 163/72 (102) 76 149/77 (101) Physical Exam: General- no distress Lungs- clear to auscultation; no respiratory distress Cardiovascular- RRR; no gallop appreciated; no JVD; no pretibial edema Abdomen- + bowel sounds, soft, nontender Extremities- no cyanosis; no calf tenderness; left upper extremity immobilized Neuro- alert, oriented Skin- warm & dry . Laboratory Results: Last 24 Hours Test 09/09/17 03:20 White Blood Count 7.62 K/uL Red Blood Count 3.82 M/uL Hemoglobin 11.2 g/dL Hematocrit 32.3 % Mean Corpuscular Volume 84.6 fL Mean Corpuscular Hemoglobin 29.3 pg Mean Corpuscular Hemoglobin Concent 34.7 g/dl RDW Standard Deviation 40.0 fL RDW Coefficient of Variation 13.1 % Platelet Count 213 K/uL Mean Platelet Volume 9.7 fL Sodium Level 134 mmol/L Potassium Level 3.6 mmol/L Chloride Level 105 mmol/L Carbon Dioxide Level 26 mmol/L Anion Gap 3.0 mmol/L Blood Urea Nitrogen 23 mg/dl Creatinine 0.74 mg/dl Est Creatinine Clear Calc Drug Dose 66.6 ml/min Estimated GFR () 96.5 Estimated GFR (Non- 83.2 BUN/Creatinine Ratio 31.4 Random Glucose 125 mg/dl Calcium Level 8.3 mg/dl Troponin I < 0.015 ng/ml Assessment & Plan FALL Apparent mechanical fall. Sinus bradycardia noted, no other arrhythmias. EKG CHANGES EKG demonstrated sinus rhythm with nonspecific T-wave abnormalities. Troponins negative. Echocardiogram pending. LEFT HUMERUS FRACTURE Orthopedics consulted. Check vitamin D level. HYPOTHYROIDISM TSH 2.34. Continue levothyroxine. DISPOSITION Expected discharge to home. Internal Medicine follow-up with Dr. Mason. . Current Inpatient Medications: Current Inpatient Medications Medications (Trade) Dose Ordered Sig/Luis Route Start Time Stop Time Status Last Admin Dose Admin Enoxaparin Sodium (Lovenox Inj) 40 mg Q24H SC 09/08/17 20:00 10/08/17 19:59 Acetaminophen (Tylenol Tab) 650 mg Q4H PRN PO 09/08/17 17:45 10/08/17 17:44 Future Hold 09/09/17 08:09 650 MG Ondansetron HCl (Zofran Inj) 4 mg Q6H PRN IV 09/08/17 17:45 10/08/17 17:44 Levothyroxine Sodium (Synthroid Tab) 50 mcg DAILYBB PO 09/09/17 06:00 10/09/17 06:59 09/09/17 05:55 50 MCG Multivitamins (Multivitamin Tab) 1 tab DAILY PO 09/09/17 09:00 10/09/17 08:59 09/09/17 08:06 1 TAB Miscellaneous (Iv Fluids Completed) 1 ea PRN PRN N/A 09/08/17 19:00 09/08/18 18:59 Acetaminophen (Tylenol Tab) 1,000 mg Q8 PO 09/09/17 14:00 10/09/17 13:59 09/09/17 14:12 1,000 MG Tramadol HCl (Ultram Tab) 50 mg Q6H PRN PO 09/09/17 11:00 10/09/17 10:59 Oxycodone HCl (Roxicodone Immediate Rel Tab) 5 mg Q6H PRN PO 09/09/17 11:00 09/23/17 10:59 09/09/17 13:19 5 MG
[2017-09-09] MEDS ORDERED: FENTANYL CITRATE INJ 50 MCG/1 ML 2 ML VIAL ONE (21:42)
[2017-09-09] MEDS ORDERED: MIDAZOLAM HCL 1 MG/ML 2ML VIAL ONE (21:42)
--- NOTE | 2017-09-09 21:44 | History & Physical Bridge Note ---
H&P Re-Evaluation Bridge Note: I have examined the patient, reviewed the History & Physical and in the interval since the performance of the History & Physical I have noted the following changes of clinical significance: No changes noted
--- NOTE | 2017-09-09 22:16 | [facility] Post Operative Brief Note ---
Immediate Operative Summary Operative Date Sep 09, 2017. Pre-Operative Diagnosis Posterior dislocation left shoulder Post-Operative Diagnosis same Procedure(s) Performed closed reduction left shoulder Surgeon brigid Radiotelegraph Operator Surgeon(s) 0 Estimated Blood Loss 0 Findings Consistent with Post-Op Diagnosis Specimens 0 Drains None Anesthesia Type General Complication(s) none Disposition Disposition: Recovery Room / PACU
[2017-09-09] MEDS ORDERED: PROPOFOL IV EMULSION 10 MG/ML 20 ML VIAL IV ONE (22:23)
[2017-09-09] MEDS ORDERED: ONDANSETRON INJ 2 MG/ML 2 ML VIAL ONE (22:23)
[2017-09-09] MEDS ORDERED: SUCCINYLCHOLINE CHLORIDE 20 MG/ML 10 ML VIAL IV ONE (22:23)
--- NOTE | 2017-09-09 22:33 | [facility] Operative Report ---
Operative Report Operative Date Sep 09, 2017. Pre-Operative Diagnosis Posterior dislocation left shoulder Post-Operative Diagnosis same Procedure(s) Performed closed reduction left shoulder Surgeon brigid Coding Specialist Surgeon(s) 0 Estimated Blood Loss 0 Specimens 0 Drains None Anesthesia Type General Complication(s) none Disposition Recovery Room / PACU Indications The patient is a 66-year-old female who was admitted yesterday after a fall and syncopal episode. A humerus x-ray was obtained in the emergency room which demonstrated nondisplaced proximal humerus fracture. We are consulted today. Based on humerus x-rays are suspicious of a posterior dislocation. I try to obtain an axillary x-ray with the patient was in too much pain and was unable to get into this position. Scapular Y x-ray demonstrated posterior dislocation of shoulder. There was some delay in getting the operating room as the patient had had lunch. I was then also bumped for an emergency bowel perforation surgery. She now presents for closed reduction. Description of Procedure Risks benefits and alternatives to the procedure including but not limited to pain, stiffness, failure of reduction, need for later re-reduction, possible need for later surgery, damage to blood vessels, displacement of the fracture. Damage to nerves were discussed and they wished to proceed. The patient was identified and the laterality was confirmed and marked. The patient was placed under general anesthesia per the anesthesia staff. Once the patient was appropriately sedated I performed a gentle reduction maneuver. He had palpable reduction of the shoulder. The shoulder was then able to be brought through a normal smooth range of motion. Post reduction x- rays were obtained and demonstrated reduction of the glenohumeral joint. The patient was neurovascularly intact after the procedure. I attest to the content of the Intraoperative Record and any orders documented therein. Any exceptions are noted below.
--- NOTE | 2017-09-09 22:44 | Anesthesiology Progress Note ---
Anesthesia Post Op Note Date & Time Sep 09, 2017 at 22:44 Vital Signs Pain Intensity: 0 Vital Signs Past 12 Hours Date Time Temp Pulse Resp B/P (MAP) Pulse Ox O2 Delivery O2 Flow Rate FiO2 09/09/17 20:00 Room Air 09/09/17 19:34 37.0 69 16 154/75 (101) 100 Room Air 09/09/17 16:00 Room Air 09/09/17 15:40 37.1 64 18 165/67 (99) 96 Room Air 80 163/72 (102) 76 149/77 (101) 09/09/17 12:00 Room Air 09/09/17 11:21 37.1 57 18 138/55 (82) 100 Notes Mental Status: alert / awake / arousable, participated in evaluation Pt Amnestic to Procedure: Yes Nausea / Vomiting: adequately controlled Pain: adequately controlled Airway Patency, RR, SpO2: stable & adequate BP & HR: stable & adequate Hydration State: stable & adequate Anesthetic Complications: no major complications apparent
[2017-09-09] MEDS ORDERED: FENTANYL CITRATE INJ 50 MCG/1 ML 2 ML VIAL IV PRN (22:45)
[2017-09-09] MEDS ORDERED: EpHEDrine SULFATE INJ 50 MG/ML AMP IV PRN (22:45)
[2017-09-09] MEDS ORDERED: ATROPINE SULFATE 0.1 MG/ML 5ML SYR IV PRN (22:45)
[2017-09-09] MEDS ORDERED: ONDANSETRON INJ 2 MG/ML 2 ML VIAL IV PRN (22:45)
--- NOTE | 2017-09-09 22:45 | DIAGNOSTIC IMAGING REPORT ---
L SHOULDER MIN 2 VIEW ROUTINE CLINICAL HISTORY: 66 years-old Female presenting with LEFT CLOSED REDUCTION. TECHNIQUE: 1 fluoroscopic image(s) recorded as part of an intraoperative procedure. COMPARISON: Plain radiograph performed earlier the same day. FINDINGS/IMPRESSION: Glenohumeral joint congruent. Please see surgical report for further details. Fluoroscopy dosage (mGy): 0.32. Fluoroscopy time: 3.7 seconds. Number of fluoroscopic spot images: 0. Electronically signed by: Lux Muhammad M.D. 09/09/2017 10:44 PM Dictated Date/Time: 09/09/2017 10:43 PM
--- NOTE | 2017-09-09 22:49 | DIAGNOSTIC IMAGING REPORT ---
L SHOULDER 1 VIEW CLINICAL HISTORY: 66 years-old Female presenting with POST REDUCTION AXILLARY VIEW. TECHNIQUE: Single axillary view of the left shoulder was obtained. COMPARISON: 09/09/2017 11:53 AM. FINDINGS: Glenohumeral joint congruent. Radiolucency obliquely at the level of the lesser tubercle concerning for fracture. No advanced degenerative change. No radiographic soft tissue abnormality. IMPRESSION: 1. No residual subluxation. 2. Findings concerning for minimally displaced fracture of the lesser tubercle Electronically signed by: Lux Muhammad M.D. 09/09/2017 10:48 PM Dictated Date/Time: 09/09/2017 10:46 PM
[2017-09-10] VITALS (7 sets, daily range): BP systolic 108–152; BP diastolic 66–78; PULSE 73–90; TEMP 36.6–37.2; O2SAT 93–97
[2017-09-10] MEDS: LEVOTHYROXINE 50 MCG TAB PO SCH (05:47)
[2017-09-10] MEDS: ACETAMINOPHEN 500 MG TAB PO SCH ×2 (05:51→13:56)
[2017-09-10 06:28] LABS: CALCIUM 8.5 mg/dl (8.5-10.1); CREATININE 0.68 mg/dl (0.60-1.20); POTASSIUM 3.6 mmol/L (3.5-5.1)
[2017-09-10] MEDS: ENOXAPARIN 40 MG/0.4 ML SYR SC SCH (07:16)
[2017-09-10] MEDS: MULTIVITAMIN TAB PO SCH (09:00)
--- NOTE | 2017-09-10 11:18 | Orthopedic Progress Note ---
Orthopedic Progress Note Date of Service Sep 10, 2017. Subjective Reports: feeling well, Denies: complaints Objective Left upper extremity: 2+ radial pulse. Light touch sensation and motor function the ulnar radial nerve distributions is tact. Mild swelling over the proximal humerus Date Time Temp Pulse Resp B/P (MAP) Pulse Ox O2 Delivery O2 Flow Rate FiO2 09/10/17 10:09 36.7 73 18 97 Room Air 09/10/17 08:39 36.7 73 18 108/68 (81) 97 Room Air 09/10/17 07:30 93 Room Air 09/10/17 02:35 37.2 86 16 150/75 (100) 93 Room Air 09/10/17 01:30 36.8 90 16 144/76 (98) 95 Room Air 09/10/17 00:31 37.1 79 16 152/78 (102) 96 Room Air 09/10/17 00:02 36.6 77 16 147/66 (93) 97 Room Air 09/10/17 00:00 Room Air 09/09/17 23:30 97 Room Air 09/09/17 23:30 36.6 91 16 152/90 (110) 96 Room Air 09/09/17 23:22 87 18 154/81 96 Room Air Oxymask 09/09/17 23:10 36.4 84 18 157/84 96 Room Air Oxymask 09/09/17 23:00 84 16 144/86 96 Room Air Oxymask 09/09/17 22:50 73 16 143/83 96 Room Air Oxymask 09/09/17 22:40 72 16 130/78 100 Oxymask 5 09/09/17 22:35 36.3 78 16 138/80 100 Oxymask 5 09/09/17 20:00 Room Air 09/09/17 19:34 37.0 69 16 154/75 (101) 100 Room Air 09/09/17 16:00 Room Air 09/09/17 15:40 37.1 64 18 165/67 (99) 96 Room Air 80 163/72 (102) 76 149/77 (101) 09/09/17 12:00 Room Air 09/09/17 11:21 37.1 57 18 138/55 (82) 100 Assessment & Plan Assessment: Day 1 status post closed reduction left shoulder posterior dislocation Plan: Her pain is much improved after the reduction. There is no issue with the fracture after the reduction everything continues to line up well. She is to continue the sling for about 6 weeks. She will follow-up in my office for surveillance x-ray 2 weeks. We will plan on discharging her today
--- NOTE | 2017-09-10 13:07 | Progress Note ---
Medicine Progress Note Date & Time of Visit: Sep 10, 2017 at 13:07 . Subjective Doing well. Left upper extremity pain improved. Ready to go home. . Objective Last 8 Hrs Date Time Temp Pulse Resp B/P (MAP) Pulse Ox O2 Delivery O2 Flow Rate FiO2 09/10/17 10:09 36.7 73 18 97 Room Air 09/10/17 08:39 36.7 73 18 108/68 (81) 97 Room Air 09/10/17 07:30 93 Room Air Physical Exam: General- no distress Lungs- clear to auscultation; no respiratory distress Cardiovascular- RRR; no gallop appreciated; no JVD; no pretibial edema Abdomen- + bowel sounds, soft, nontender Extremities- no cyanosis; no calf tenderness; left upper extremity immobilized Neuro- alert, oriented Skin- warm & dry . Laboratory Results: Last 24 Hours Test 09/10/17 05:04 Sodium Level 138 mmol/L Potassium Level 3.6 mmol/L Chloride Level 108 mmol/L Carbon Dioxide Level 26 mmol/L Anion Gap 4.0 mmol/L Blood Urea Nitrogen 10 mg/dl Creatinine 0.68 mg/dl Est Creatinine Clear Calc Drug Dose 73.2 ml/min Estimated GFR () 104.2 Estimated GFR (Non- 89.9 BUN/Creatinine Ratio 14.6 Random Glucose 102 mg/dl Calcium Level 8.5 mg/dl 25-Hydroxy Vitamin D Total 35.3 ng/ml Assessment & Plan LEFT HUMERUS FRACTURE / LEFT SHOULDER DISLOCATION X-rays demonstrated dislocation of the left shoulder and nondisplaced fracture of the left humeral neck. Orthopedics consulted. Close reduction of dislocation performed by Dr. Ragsdale. Nonoperative management of fracture of humeral neck recommended; immobilization recommended for 6 weeks. Vitamin D level normal. FALL Apparent mechanical fall. Sinus bradycardia noted, no other arrhythmias. EKG CHANGES EKG demonstrated sinus rhythm with nonspecific T-wave abnormalities. Patient is physically active without anginal symptoms. Troponins negative. Echocardiogram showed normal left ventricular wall motion and function. VALVULAR HEART DISEASE Echocardiogram demonstrated moderate aortic regurgitation, mild to moderate mitral regurgitation. Repeat echocardiogram recommended in 12 months. HYPOTHYROIDISM TSH 2.34. Continue levothyroxine. DISPOSITION Discharged to home. Internal Medicine follow-up with Dr. Mason. Orthopedic follow-up with Dr. Ragsdale. . Current Inpatient Medications: Current Inpatient Medications Medications (Trade) Dose Ordered Sig/Luis Route Start Time Stop Time Status Last Admin Dose Admin Enoxaparin Sodium (Lovenox Inj) 40 mg Q24H SC 09/08/17 20:00 10/08/17 19:59 Acetaminophen (Tylenol Tab) 650 mg Q4H PRN PO 09/08/17 17:45 10/08/17 17:44 Future Hold 09/09/17 08:09 650 MG Ondansetron HCl (Zofran Inj) 4 mg Q6H PRN IV 09/08/17 17:45 10/08/17 17:44 Levothyroxine Sodium (Synthroid Tab) 50 mcg DAILYBB PO 09/09/17 06:00 10/09/17 06:59 09/10/17 05:47 50 MCG Multivitamins (Multivitamin Tab) 1 tab DAILY PO 09/09/17 09:00 10/09/17 08:59 09/09/17 08:06 1 TAB Miscellaneous (Iv Fluids Completed) 1 ea PRN PRN N/A 09/08/17 19:00 09/08/18 18:59 Acetaminophen (Tylenol Tab) 1,000 mg Q8 PO 09/09/17 14:00 10/09/17 13:59 09/10/17 05:51 1,000 MG Tramadol HCl (Ultram Tab) 50 mg Q6H PRN PO 09/09/17 11:00 10/09/17 10:59 Oxycodone HCl (Roxicodone Immediate Rel Tab) 5 mg Q6H PRN PO 09/09/17 11:00 09/23/17 10:59 09/09/17 13:19 5 MG
[2017-09-10] MEDS ORDERED: ACET-1257 PO (13:08)
--- NOTE | 2017-09-10 13:13 | Discharge Instructions ---
Discharge Instructions Date of Service Sep 10, 2017. Admission Reason for Admission: fall, left arm / shoulder injury . Discharge Discharge Diagnosis / Problem: dislocated left shoulder, fractured left humerus Discharge Goals Goal(s): Decrease discomfort, Improve function Activity Recommendations Activity Limitations: as noted below Driving or Machine Use: no driving until Orthopedic Surgery says OK keep left arm in sling for 6 weeks no lifting with left arm . . Instructions / Follow-Up Instructions / Follow-Up APPOINTMENTS: INTERNAL MEDICINE 09/12/2017 11:00 AM Noemi Moerl MD (covering for Dr. Mason) ORTHOPEDIC SURGERY [facility] Please call for appointment in 2 weeks. [phone] OTHER INSTRUCTIONS: Echocardiogram showed leaking heart valves- moderate aortic regurgitation and mild-moderate mitral regurgitation. Suggest repeat echocardiogram in 1 year. Seek medical attention if you have trouble breathing, less exercise tolerance, swelling of legs or feet, lightheadedness. Seek medical attention if you have: * temperature above 101 * chest pain or trouble breathing * abdominal pain, nausea, vomiting * diarrhea, dark stools or bloody stools * pain not adequately well-controlled * headache, visual changes, difficulty speaking, weakness in arms or legs * any unanswered questions or concerns Call 911 if symptoms are severe. Call if you have any questions or problems. My cell # is [phone]. You can also reach a [facility] hospitalist on duty at [facility] 24 hours a day by calling [phone]. Please take good care of yourself. Xavier Sharp . Current Hospital Diet Patient's current hospital diet: AHA Diet (Heart Healthy) Discharge Diet Recommended Diet: Regular Diet Procedures Procedures Performed: closed reduction left shoulder x-ray left shoulder: nondisplaced fracture of left humeral neck dislocation of shoulder echocardiogram: moderate aortic regurgitation mild-moderate mitral regurgitation Pending Studies Studies pending at discharge: no Laboratory Results vitamin D level = 35 (normal) . Medical Emergencies . Who to Call and When: Medical Emergencies: If at any time you feel your situation is an emergency, please call 911 immediately. . Non-Emergent Contact Non-Emergency issues call your: Primary Care Provider, Hospital Doctor, Surgeon . . "Provider Documentation" section prepared by Xavier Sharp. .
--- NOTE | 2017-09-11 21:37 | Discharge Summary ---
Discharge Summary Date of Service Sep 11, 2017. Discharge Summary Admission Date: Sep 09, 2017 at 22:23 Discharge Date: Sep 10, 2017 Discharge Disposition: Home Principal Diagnosis: fracture left humeral neck / dislocation left shoulder . Secondary Diagnoses/Problems: hypothyroidism aortic regurgitation, moderate mitral regurgitation, mild-moderate . Procedures: cardiac monitoring echocardiogram closed reduction left shoulder dislocation . Consultations: Orthopedics with Dr. Ragsdale. . Pending Studies/Follow-Up: Please arrange for follow-up echocardiogram in 12 months re: aortic regurgitation and mitral regurgitation. . Medication Reconciliation New Medications: Acetaminophen (Tylenol Extra Strength) 500 Mg Tab 1000 MG PO Q8 PRN for Pain, #100 TAB Continued Medications: Levothyroxine Sodium (Levothyroxine Sodium) 50 Mcg Tab 1 TAB PO DAILY for 90 Days, #90 TAB 3 Refills Multivitamin (Multivitamin) Tab 1 TAB PO DAILY, TAB Admission Information HPI (per Admitting provider): 58-year-old female who presents to the ER after a fall and left shoulder pain. Patient was at the outpatient dermatology office when she reports she went to adjust her chair and subsequently fell to the left and onto the ground. She reports immediate left shoulder pain. She reports pain was severe. She reports she was unable to get off the floor from the pain. Patient was found to be diaphoretic. She was transferred to the internal medicine office where she was found to be bradycardic and hypotensive. Patient denies any feelings of lightheadedness or dizziness. She denies loss of consciousness. No chest pain, palpitations, shortness of breath. Patient reports she otherwise has been feeling well recently. She walks up to 2 miles per day. No recent illnesses, fevers, or chills. She denies abdominal pain, nausea, vomiting, or diarrhea. No urinary symptoms. In the ED, patient was found to have a nondisplaced left humerus fracture. Labs are unremarkable. Blood pressure is stable. EKG shows sinus arrhythmia with mildly worsened T-wave flattening/inversions in leads aVF , V2, V3, V4, and V5. During my exam, patient was noted to have heart rates in the 90s with sinus arrhythmia. . Physical Exam (per Admitting): General Appearance: WD/WN, no apparent distress Head: normocephalic, atraumatic Eyes: normal inspection, EOMI, sclerae normal ENT: hearing grossly normal, + pertinent finding (Mucous membranes moist) Neck: supple, no JVD, trachea midline Respiratory/Chest: lungs clear, normal breath sounds, no respiratory distress Cardiovascular: no edema, no murmur, normal peripheral pulses, + irregularly irregular (Heart rate controlled) Abdomen/GI: normal bowel sounds, non tender, soft, no organomegaly Extremities/Musculoskelatal: + pertinent finding (Left upper extremity in sling, CSM checks intact) Neurologic/Psych: no motor/sensory deficits, alert, normal mood/affect, oriented x 3 Skin: normal color, warm/dry Hospital Course LEFT HUMERUS FRACTURE / LEFT SHOULDER DISLOCATION Suffered mechanical fall from chair. X-rays demonstrated dislocation of the left shoulder and nondisplaced fracture of the left humeral neck. Orthopedics consulted. Closed reduction of dislocation performed by Dr. Ragsdale. Nonoperative management of fracture of humeral neck recommended; immobilization recommended for 6 weeks. Vitamin D level normal. FALL Apparent mechanical fall. Sinus bradycardia noted, no other arrhythmias. EKG CHANGES EKG demonstrated sinus rhythm with nonspecific T-wave abnormalities. Patient is physically active without anginal symptoms. Troponins negative. Echocardiogram showed normal left ventricular wall motion and function. VALVULAR HEART DISEASE Echocardiogram demonstrated moderate aortic regurgitation, mild to moderate mitral regurgitation. Repeat echocardiogram recommended in 12 months. HYPOTHYROIDISM TSH 2.34. Continue levothyroxine. DISPOSITION Discharged to home. Internal Medicine follow-up with Dr. Mason. Orthopedic follow-up with Dr. Ragsdale. . Discharge Instructions Date of Service Sep 10, 2017. Admission Reason for Admission: fall, left arm / shoulder injury . Discharge Discharge Diagnosis / Problem: dislocated left shoulder, fractured left humerus Discharge Goals Goal(s): Decrease discomfort, Improve function Activity Recommendations Activity Limitations: as noted below Driving or Machine Use: no driving until Orthopedic Surgery says OK keep left arm in sling for 6 weeks no lifting with left arm . . Instructions / Follow-Up Instructions / Follow-Up APPOINTMENTS: INTERNAL MEDICINE 09/12/2017 11:00 AM Noemi Morel MD (covering for Dr. Mason) ORTHOPEDIC SURGERY [facility] Please call for appointment in 2 weeks. [phone] OTHER INSTRUCTIONS: Echocardiogram showed leaking heart valves- moderate aortic regurgitation and mild-moderate mitral regurgitation. Suggest repeat echocardiogram in 1 year. Seek medical attention if you have trouble breathing, less exercise tolerance, swelling of legs or feet, lightheadedness. Seek medical attention if you have: * temperature above 101 * chest pain or trouble breathing * abdominal pain, nausea, vomiting * diarrhea, dark stools or bloody stools * pain not adequately well-controlled * headache, visual changes, difficulty speaking, weakness in arms or legs * any unanswered questions or concerns Call 911 if symptoms are severe. Call if you have any questions or problems. My cell # is [phone]. You can also reach a [facility] hospitalist on duty at [facility] 24 hours a day by calling [phone]. Please take good care of yourself. Xavier Sharp . Current Hospital Diet Patient's current hospital diet: AHA Diet (Heart Healthy) Discharge Diet Recommended Diet: Regular Diet Procedures Procedures Performed: closed reduction left shoulder x-ray left shoulder: nondisplaced fracture of left humeral neck dislocation of shoulder echocardiogram: moderate aortic regurgitation mild-moderate mitral regurgitation Pending Studies Studies pending at discharge: no Laboratory Results vitamin D level = 35 (normal) . Medical Emergencies . Who to Call and When: Medical Emergencies: If at any time you feel your situation is an emergency, please call 911 immediately. . Non-Emergent Contact Non-Emergency issues call your: Primary Care Provider, Hospital Doctor, Surgeon . . "Provider Documentation" section prepared by Xavier Sharp. . . Additional Copies To Lux Ragsdale M.D.; Michael Mason D.O.
== END 2017-09-10 15:15 | disposition home or self-care (01) | DRG 563 ==
LOC: EDBD 14:28 → C.EDC 14:30 → C.2T 17:40 → ENRESERV 18:09 → OBSVTOIN 09-09 22:23 → C.MSN 09-09 23:44
PROVIDERS: ADMIT Internal Medicine; ATTEND Hospitalist
PROC: 0RSKXZZ Reposition Left Shoulder Joint, External Approach (ICD-10-PCS; principal; 2017-09-09 09:00)
DX: S43.025A Posterior dislocation of left humerus, initial encounter (principal); S42.255A Nondisplaced fracture of greater tuberosity of left humerus, initial encounter for closed fracture; R55 Syncope and collapse; R00.1 Bradycardia, unspecified; E03.9 Hypothyroidism, unspecified; Z87.891 Personal history of nicotine dependence; Z79.899 Other long term (current) drug therapy; W18.30XA Fall on same level, unspecified, initial encounter; Y92.531 Health care provider office as the place of occurrence of the external cause